=== PATIENT | female | born 2000 | race African-American/Black ===

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

== ENCOUNTER 2019-08-08 13:27 | Observation (INO) | payer MEDICAID ==
[~2019-08-08 13:27] MED LIST: PREN-153 OR
== END 2019-08-08 15:00 | disposition home or self-care (01) | DRG 566 ==
LOC: LDRP 13:27
PROVIDERS: ADMIT Obstetrics & Gynecology; ATTEND Obstetrics & Gynecology
DX: O40.3XX0 Polyhydramnios, third trimester, not applicable or unspecified (principal); Z3A.36 36 weeks gestation of pregnancy
CPT/HCPCS: 59025; 76818; 81002; G0378

== ENCOUNTER 2019-08-13 10:28 | Observation (INO) | payer MEDICAID | END 2019-08-13 13:04 | disposition home or self-care (01) | DRG 566 | LOC: LDRP 10:28 | PROVIDERS: ADMIT Obstetrics & Gynecology; ATTEND Obstetrics & Gynecology | DX: O40.3XX0 Polyhydramnios, third trimester, not applicable or unspecified (principal); Z3A.37 37 weeks gestation of pregnancy | CPT/HCPCS: 59025; 76818; 81002; G0378 ==